=== PATIENT | female | born 2005 | race Caucasian/White ===

== ENCOUNTER 2025-05-18 21:56 | Emergency (ER) | payer OTHER, SELFPAY ==
[2025-05-18 21:57] VITALS: BP 133/83; PULSE 65; RESP 14; TEMP 36.4; O2SAT 98; BMI 32.6
--- NOTE | 2025-05-18 22:16 | CM.ED ---
Social work SW spoke with patient's mother separately (see beginning of SW assessment in prior note) and patient's mother stated need for resources due to not knowing how to help patient. JONATHAN spoke with doctor who agreed with safety planning patient. JONATHAN called [facility] (ph: [phone]) and spoke with Hugh who provided [facility] alumni relations coordinatorwind turbine sheet metal worker. Bobby Eagle, [facility] alumni relations coordinatorwind turbine sheet metal worker (ph: [phone]) answered and JONATHAN explained situation. Bobby stated knowing patient and being able to set up an intake for [facility] tomorrow if patient and patient's mother would like. JONATHAN asked Bobby to call patient's mother to set up intake and this was set up for 1430 on 05/19/2025. Patient agreed to safety plan and to the [facility] intake tomorrow. No further needs identified at this time. Plan: safety plan home with [facility] intake 05/19/25 at 1430 Millicent Ibarra, KIT, [employer] TECH[employer]ICAL ARCHITECT
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
[2025-05-18 23:31] VITALS: BP 113/77; PULSE 58; RESP 15; TEMP 36.6; O2SAT 100
== END 2025-05-18 23:43 | disposition home or self-care (01) ==
LOC: ED 23:41
PROVIDERS: Emergency Provider Emergency Medicine; Visit Provider Emergency Medicine
DX: L25.9 Unspecified contact dermatitis, unspecified cause (principal)
CPT/HCPCS: 99283